=== PATIENT | female | born 1965 | race Caucasian/White ===

== ENCOUNTER 2023-07-25 21:36 | Emergency (ER) | payer MEDICAID ==
[~2023-07-25] VITALS: Ht 157.5 cm; Wt 62.0 kg
[2023-07-25 21:41] VITALS: TEMP 97.8; O2SAT 99
[2023-07-25] MEDS ORDERED: NAPR-681 PO (22:31)
[2023-07-25 22:43] VITALS: BP 169/67; PULSE 56; RESP 12
== END 2023-07-25 22:46 | disposition home or self-care (01) ==
LOC: ER 21:36
DX: M25.512 Pain in left shoulder (principal); I10 Essential (primary) hypertension; Z98.890 Other specified postprocedural states
CPT/HCPCS: 99282